=== PATIENT | female | born 1940 | race Caucasian/White ===

== ENCOUNTER → 2018-04-27 10:19 | Outpatient (CLI) | payer MEDICARE, SELFPAY ==
--- NOTE | 2018-04-27 | DI.MRI.S_ITS ---
PROCEDURE: MR CERVICAL SPINE WO CON INDICATIONS: Spondylopathy TECHNIQUE: Noncontrast sagittal T1 spin echo and T2 fast spin echo, sagittal STIR, foraminal oblique sagittal T2 fast spin echo, and axial gradient echo or T2 fast spin echo through the cervical spine. COMPARISON: None. FINDINGS: Image quality: Excellent. Alignment and Curvature: There is trace anterolisthesis of C3 on C4, C6 on C7, C7 on T1, trace retrolisthesis of C4 on C5, C5 on C6. Bone Marrow: Marrow demonstrates normal overall signal. Spinal Cord: Visualized spinal cord has normal size and signal. No cerebellar tonsillar herniation. Paraspinous Soft Tissues: No paravertebral masses. Prevertebral soft tissues are normal in thickness. Discs: Moderate to severe desiccation is present throughout the cervical spine most notable at C4-5 and C5-6. C2-C3: No disc bulge, spinal stenosis or foraminal narrowing. C3-C4: Mild disc bulge with minimal canal narrowing. There is severe right and moderate left foraminal narrowing with uncovertebral hypertrophy. C4-C5: Mild disc bulge with moderate spinal stenosis. There is moderate to severe bilateral foraminal narrowing with uncovertebral hypertrophy. C5-C6: Mild disc bulge with mild spinal stenosis. Moderate to severe bilateral, left greater than right foraminal narrowing with uncovertebral hypertrophy. C6-C7: Mild disc bulge with mild spinal stenosis. Severe bilateral foraminal narrowing, left greater than right with uncal vertebral hypertrophy. C7-T1: No disc bulge, spinal stenosis or foraminal narrowing. IMPRESSION: 1. Significant multilevel disc bulges and spinal stenosis, with the lateral prominent at C4-5 secondary retrolisthesis and disc bulge. 2. Moderate to severe multilevel foraminal narrowing predominantly secondary to uncovertebral arthropathy. Dictated by: Roxana Ramirez M.D. on 04/27/2018 at 15:51 Approved by: Roxana Ramirez M.D. on 04/27/2018 at 15:57
== END ==
PROVIDERS: PCP Family Medicine; Visit Provider Family Medicine
DX: M48.8X2 Other specified spondylopathies, cervical region (principal); M50.20 Other cervical disc displacement, unspecified cervical region; M48.02 Spinal stenosis, cervical region
CPT/HCPCS: 72141

== ENCOUNTER → 2018-10-01 10:52 | Outpatient (CLI) | payer MEDICARE, SELFPAY ==
--- NOTE | 2018-10-01 | DI.MG.S_ITS ---
BILATERAL DIGITAL SCREENING MAMMOGRAM 3D/2D WITH CAD: 10/01/2018 CLINICAL: Routine screening. Comparison is made to exams dated: 12/18/2016 mammogram, 08/30/2015 mammogram, and 07/26/2014 mammogram - [facility]. The tissue of both breasts is heterogeneously dense. This may lower the sensitivity of mammography. Current study was also evaluated with a Computer Aided Detection (CAD) system. No significant masses, calcifications, or other findings are seen in either breast. There has been no significant interval change. IMPRESSION: NEGATIVE There is no mammographic evidence of malignancy. A 1 year screening mammogram is recommended. This exam was interpreted at Station ID: [id number]. NOTE: For mammograms, a report in lay terms will be sent to the patient. Approximately 15% of breast malignancies will not be visualized mammographically. In the management of a palpable breast mass, a negative mammogram must not discourage biopsy of a clinically suspicious lesion. Electronically Signed By: Bhavesh vuong/zoey:10/01/2018 17:14:52 letter sent: Normal Exam ACR BI-RADS Category 1: Negative [id number]
== END ==
PROVIDERS: PCP Family Medicine; Visit Provider Family Medicine
DX: Z12.31 Encounter for screening mammogram for malignant neoplasm of breast (principal)
CPT/HCPCS: 77063; 77067

== ENCOUNTER → 2018-10-23 10:53 | Outpatient (CLI) | payer MEDICARE, SELFPAY ==
--- NOTE | 2018-10-23 | DI.MRI.S_ITS ---
PROCEDURE: MR STROKE Pre- and post-contrast brain MRI, non-contrast brain MR angiogram, pre- and postcontrast neck MR angiogram INDICATIONS: ATAXIA TECHNIQUE: Brain: Noncontrast axial T1 spin echo, axial T2 fast spin echo, sagittal and axial FLAIR, coronal T2 fast spin echo, axial gradient echo, axial diffusion and ADC through the brain. After the administration of contrast, axial 3D VIBE of the cranial vasculature and brain. Brain MRA: Non-contrast 3-D time of flight MR angiogram, with multiple gvownhz-znqpdpzym-dvhgssbcqw (MIP) reformats performed. Neck MRA: Axial and sagittal TruFISP through the neck. Coronal dynamic MR angiogram during administration of contrast in the arterial and venous phases, with 3-dimenstional ulbuxaq-mopwxmbyt-boshcpnwui (MIP) reformats constructed from subtraction images. COMPARISON: None. FINDINGS: Image quality: Excellent. BRAIN: CSF spaces: Ventricles are normal in size and shape. Basal cisterns are patent. No extra-axial fluid collections. Brain: No intracranial bleeds or mass effects. Delaney-white matter interface is normal. Diffusion weighted images show no acute ischemic insults. Brainstem appears normal. Normal intravascular flow voids are present. No abnormal intracranial enhancement. Skull and face: Calvarial marrow signal is normal. Orbits appear normal. Sinuses: Sinuses and mastoids are clear. BRAIN MR ANGIOGRAM: Anterior circulation: Intracranial internal carotid arteries are normal in size and enhancement. The flow within the paired anterior cerebral arteries is normal and symmetric. The flow within the middle cerebral arteries is normal and symmetric. The anterior communicating artery variant is noted. No stenoses, occlusions, or aneurysms. Posterior circulation: The visualized portions of the vertebral arteries demonstrate normal caliber, and join to form a normal appearing basilar artery. Diminutive left posterior communicating artery is seen. The flow within the posterior cerebral arteries is normal and symmetric. No stenoses, occlusions, or aneurysms. NECK MR ANGIOGRAM: Carotids: Great vessels demonstrate a conventional anatomy as they arise from the aortic arch. The origins of the common carotid arteries appear patent. The calibers and courses of both common carotid arteries are normal. The bifurcation regions appear normal bilaterally. The internal carotid arteries demonstrate normal course and caliber. Posterior circulation: The origins of the vertebral arteries appear patent. More superior portions of both vertebral arteries demonstrate normal course and caliber, and join to form a normal appearing basilar artery. Miscellaneous: Subclavian arteries appear patent. Pre-contrast images through the neck show no soft tissue abnormalities. IMPRESSION: BRAIN MRI: No evidence of acute ischemia. No abnormal enhancement or discrete mass lesion seen Scattered small white matter signal changes, probably represent chronic microvascular ischemic disease, versus statistically less likely demyelination or other infectious/inflammatory/neurodegenerative etiology, technically nonspecific. Scattered foci of chronic blood products or calcification seen in the left occipital lobe, indeterminate etiology. BRAIN MR ANGIOGRAM: No focal stenosis or occlusion NECK MR ANGIOGRAM: Negative exam. No ICA stenosis. Dictated by: Raul Flannery M.D. on 10/23/2018 at 12:36 Approved by: Raul Flannery M.D. on 10/23/2018 at 13:03
== END ==
PROVIDERS: PCP Family Medicine; Visit Provider Family Medicine
DX: R27.0 Ataxia, unspecified (principal)
CPT/HCPCS: 70553; A9579

== ENCOUNTER 2020-08-03 18:49 | Observation (INO) | payer MEDICARE, SELFPAY ==
[2020-08-03] VITALS (9 sets, daily range): BP systolic 130–194; BP diastolic 75–138; PULSE 73–77; RESP 17–30; TEMP 36.6–36.9; O2SAT 95–99; BMI 21.6
--- NOTE | 2020-08-03 | DI.ECHO.S_ITS ---
[facility] +---------+ Hospital +---------+ : : [address] : : : : [id number] : : : : Phone: [phone] Echocardiogram Report + + :Name: HAILEY WALKER Study Date: 08/04/2020 Height: 65 in : :Hospital Exam Location: [facility] Weight: 130 lb : : Gender: Female BSA: 1.6 m2 : :: 1940 Age: 80 yrs BP: 139/104 mmHg: :Reason For Study: TIA rule out : :Ordering Physician: Hazel : :Hospitalist Performed By: Barbi Page : :Referring: JACINTO VILLELA : + + Interpretation Summary Normal sinus rhythm. Normal LV size, wall thickness, wall motion and LV systolic function. EF is 60-65%. Severe LA enlargement; otherwise normal chamber sizes. Aortic sclerosis without stenosis. No prior study available for comparison. No evidence of PFO based on color flow Doppler. No source of embolism identified. Procedure: A two-dimensional transthoracic echocardiogram with color flow and Doppler was performed. The study quality was technically adequate. There is no prior echocardiogram noted for this patient. The patient was in normal sinus rhythm during the exam. The patient had occasional PVCs during the exam. Left Ventricle: The left ventricle is normal in size, wall thickness, and systolic function without any focal wall motion abnormalities. The ejection fraction is estimated to be 60-65%. Right Ventricle: The right ventricle is normal in size and function. Atria: The left atrium is severely dilated. Right atrial size is normal. There is no Doppler evidence for an interatrial shunt. Mitral Valve: The mitral valve is normal in structure and function. There is trace mitral regurgitation. Aortic Valve: The aortic valve is trileaflet. The aortic valve opens well. No aortic regurgitation is present. Tricuspid Valve: The tricuspid valve is normal in structure and function. There is trace tricuspid regurgitation. The right ventricular systolic pressure is estimated to be at least 28 mmHg based on an estimated right atrial pressure of 3 mm Hg. Pulmonic Valve: The pulmonic valve is not well visualized. Great Vessels: The aortic root is normal size. The dimensions of the ascending aorta are normal. The pulmonary artery is not well visualized, but is probably normal size. The IVC is of normal diameter and collapses greater than 50% with a sniff. This suggests a low right atrial pressure of 3 mm Hg. Pericardium/ Pleura There is no pericardial effusion. There is no pleural effusion. MMode/2D Measurements & Calculations LVIDd: 4.0 cm LVOT diam: 1.8 cm LVIDs: 2.8 cm Ao root diam: 2.8 cm FS: 32.0 % asc Aorta Diam: 2.4 cm EPSS: 0.55 cm IVSd: 0.50 cm LVPWd: 0.73 cm LV fitzgerald. diameter/BSA (cm/m^2): 2.5 LV sys. diameter/BSA (cm/m^2): 1.7 LA A2 area: 24.1 cm2 RA long axis: 4.3 cm LA A4 area: 23.2 cm2 RA area: 13.0 cm2 LA length (vol): 5.2 cm RA vol: 33.5 ml LA vol: 90.7 ml RA : 20.3 ml/m2 LA vol index: 55.0 ml/m2 IVC diam: 1.9 cm RVD1 (basal): 3.9 cm TAPSE: 2.2 cm Doppler Measurements & Calculations Ao V2 max: 138.8 cm/sec LVOT Max Ngaa: 92.2 cm/sec Ao V2 mean: 94.4 cm/sec LV V1 max P.4 mmHg Ao max P.7 mmHg LV V1 VTI: 20.9 cm Ao mean P.0 mmHg VICENTA(I,D): 1.9 cm2 Ao V2 VTI: 29.9 cm VICENTA(V,D): 1.8 cm2 sev ratio: 0.70 VICENTA indexed to BSA (cm^2/m^2): 1.1 MV E max naga: 88.0 cm/sec TR max naga: 248.6 cm/sec MV A max naga: 94.2 cm/sec TR max P.7 mmHg MV E/A: 0.93 PA V2 max: 70.8 cm/sec Med Peak E' Naga: 8.0 cm/sec PA V2 mean: 47.8 cm/sec E/E' med: 11.0 PA mean P.0 mmHg Lat Peak E' Naga: 8.9 cm/sec PA Accel Time: 0.12 sec E/E' lat: 9.8 E/e' average: 10.4 MV P1/2t: 88.3 msec MV /2t max naga: 88.7 cm/sec SV(LVOT): 56.2 ml MVA(2t): 2.5 cm2 Electronically signed by: Trisha Adams M.D. on Reading Physician:08/04/2020 06:33 PM
--- NOTE | 2020-08-03 19:03 | DI.RAD.S_ITS ---
PROCEDURE: XR CHEST 1V INDICATIONS: Possible stroke TECHNIQUE: One view of the chest was acquired. COMPARISON: None. FINDINGS: Surgical changes and devices: None. Lungs and pleura: Lungs are clear. No pleural effusions or pneumothorax. Mediastinum: Mediastinal contours appear normal. Heart size is normal. Bones and chest wall: No suspicious bony lesions. Overlying soft tissues appear unremarkable. IMPRESSION: No acute cardiopulmonary disease process. Dictated by: Emely De La Rosa MD, PhD on 08/03/2020 at 19:35 Approved by: Emely De La Rosa MD, PhD on 08/03/2020 at 19:35
--- NOTE | 2020-08-03 19:03 | DI.CT.S_ITS ---
PROCEDURE: CT STROKE INDICATIONS: stroke symptoms TECHNIQUE: Noncontrast 4.5 mm thick angled axial sections acquired from the foramen magnum to the vertex, with coronal reformats. For radiation dose reduction, the following was used: automated exposure control, adjustment of mA and/or kV according to patient size. COMPARISON: [facility], , MR STROKE, 10/23/2018, 11:03. FINDINGS: Image quality: Excellent. CSF spaces: Basal cisterns are patent. No extra-axial fluid collections. The ventricles are symmetric in size and shape. Brain: No intracranial bleeds or masses. Likely old infarctions are noted in bilateral occipital region and bilateral basal ganglia. There is cerebral volume loss for age, with resultant ventricular and sulcal prominence. There are periventricular and deep white matter chronic small vessel ischemic changes. There is intracranial internal carotid artery atherosclerosis. Skull and face: Calvarium and visualized facial bones appear intact, without suspicious lesions. Sinuses: Visualized sinuses and mastoids are clear. IMPRESSION: 1. No CT evidence of acute intracranial pathology. 2. Extensive white matter chronic small vessel ischemic changes. Likely old lacunar infarct seen in bilateral occipital lobes and bilateral basal ganglia. Findings were discussed with Dr. Dasilva at 7:21 p.m. PST On 08/03/2020. This study fulfills neurological imaging criteria for inclusion or exclusion of acute stroke therapies based on available published neurological guidelines. Dictated by: Parish Henderson M.D. on 08/03/2020 at 18:16 Approved by: Parish Henderson M.D. on 08/03/2020 at 18:22
--- NOTE | 2020-08-03 19:20 | ED.NEUROSD ---
HPI - Neuro Symptoms/Deficit General Chief Complaint: Neuro Symptoms/Deficit Stated Complaint: thinks she had a small stroke, Sent by Dr. Teague Time Seen by Provider: 08/03/20 19:20 Source: patient Mode of arrival: Ambulatory Limitations: no limitations History of Present Illness HPI Narrative: 80-year-old female nonsmoker presents with her at the request of her PCP for evaluation of struggling with written and typed communication for two weeks. She denies any other focal neurologic findings such as blurred vision, extremity weakness, trouble walking or other. She's had no injury, falls, chest pain, SOB, or other. She called her PCP and described her symptoms which are largely difficulty spelling words and mixing up letters. This also happens when typing. It has been persisting since it's onset 2 weeks ago. She was sent here by PCP for stroke evaluation. She is not activated as code stroke as she follow On Anticoagulants: No Related Data Home Medications Medication Instructions Recorded Confirmed Propranolol HCl 20 mg PO BID #0 08/21/12 08/03/20 estradiol 0.5 mg PO QDAY #0 08/21/12 08/03/20 latanoprost 1 drp OPHTHALMIC (EYE) BEDTIME 08/03/20 08/03/20 levothyroxine 50 mcg PO DAILY 08/03/20 08/03/20 netarsudil [Rhopressa] 1 drp OPHTHALMIC (EYE) BEDTIME 08/03/20 08/03/20 Allergies Allergy/AdvReac Type Severity Reaction Status Date / Time iodine [IODINE] Allergy Severe Anaphylaxis Verified 08/03/20 19:12 shellfish derived Allergy Severe Anaphylaxis Verified 08/03/20 19:12 [SHELLFISH DERIVED] Penicillins [PENICILLINS] Allergy Mild Verified 08/03/20 19:12 egg [EGG] Allergy Unknown Verified 08/03/20 19:12 lactase [From DAIRY AID] Allergy Unknown Verified 08/03/20 19:12 Review of Systems Constitutional Constitutional: Denies chills, Denies fatigue, Denies fever(s), Denies frequent falls, Denies lethargy and Denies weakness Eyes Eyes: Denies change in vision, Denies eye discharge, Denies irritation and Denies loss of vision ENT Ears, Nose, Mouth, and Throat: Denies change in voice, Denies dizziness, Denies neck pain, Denies sore throat and Denies throat swelling Cardiovascular Cardiovascular: Denies chest pain, Denies irregular heart rhythm, Denies lightheadedness, Denies palpitations, Denies dyspnea, Denies dyspnea on exertion and Denies orthopnea Respiratory Respiratory: Denies cough, Denies dyspnea, Denies dyspnea on exertion and Denies wheezing Gastrointestinal Gastrointestinal: Denies abdominal pain, Denies change in bowel habits, Denies diarrhea, Denies nausea and Denies vomiting Musculoskeletal Musculoskeletal: Denies neck pain and Denies numbness Integumentary/Breasts Skin/Breast: Denies pruritus, Denies erythema, Denies rash and Denies wounds Neurologic Neurologic: Denies behavioral changes, Denies confusion, Denies dizziness, Denies frequent falls, Denies loss of vision, Denies numbness and Denies weakness Comments: communication trouble Psychiatric Psychiatric: Denies anxiety, Denies behavioral changes, Denies confusion, Denies depression, Denies homicidal ideation and Denies suicidal ideation Endocrine Endocrine: Denies fatigue, Denies flushing and Denies palpitations Hematologic/Lymphatic Hematologic/Lymphatic: Denies easy bruising Allergic/Immunologic Allergic/Immunologic: Denies urticaria, Denies throat swelling and Denies wheezing Patient History Medical History (Updated 08/04/20 @ 00:36 by JASMIN Romero) Chronic migraine (Chronic) Glaucoma (Chronic) Hormone replacement therapy (Chronic) Surgical History (Updated 03/03/18 @ 05:33 by Conversion Provider) Status post cholecystectomy Status post hysterectomy Social History household members: spouse Smoking Status: Never smoker alcohol intake: former Smoking Status: Never smoker alcohol intake frequency: other Substance Use Type: does not use Exam Narrative Exam Narrative: GENERAL: [80] year old patient appears stated age. Well-nourished, well-developed patient, in mild distress. HEAD: Atraumatic. Normocephalic. EYES: Pupils equal round and reactive. Extraocular motions intact. No scleral icterus. No injection or drainage. ENT: Nose without bleeding, purulent drainage. Throat without erythema, tonsillar hypertrophy or exudate. Airway patent. NECK: Trachea midline. Non tender CARDIOVASCULAR: Regular rate and rhythm without murmurs, gallops, or rubs. RESPIRATORY: Clear to auscultation. Breath sounds equal bilaterally. No wheezes, rales, or rhonchi. GASTROINTESTINAL: Abdomen soft, non-tender, nondistended. EXTREMITIES: No edema or joint tenderness. BACK: Nontender without deformity or crepitance. No flank tenderness. NEURO: AOx3. SKIN: No rash or erythema of visible areas Initial Vital Signs Initial Vital Signs: Vital Signs Temperature 97.8 F 08/03/20 18:58 Pulse Rate 75 08/03/20 18:58 Respiratory Rate 17 08/03/20 18:58 Blood Pressure 194/85 H 08/03/20 18:58 Pulse Oximetry 95 08/03/20 18:58 Scores NIH Stroke Scale Level of Conciousness: Alert, keenly responsive Ask month/age: Answers both questions correctly. Open/close eyes, close hand: Performs both tasks correctly Best gaze horizontal: Normal Visual gaytan: No visual loss Facial palsy: Normal symetrical movement Left arm drift: No drift for full 10 sec Right arm drift: No drift for full 10 sec Left leg drift: No drift for full 5 sec Right leg drift: No drift for full 5 sec Limb ataxia: Absent Sensory on face/arms/legs: Normal, no sensory loss Best language: No aphasia, normal Dysarthria: Normal Extinction or inattention: No abnormality Total NIH Stroke scale score: 0 Course Orders Ordered: ED Orders 08/03/20 19:03 CT Stroke Stat XR chest 1V Stat EKG-12 Lead Stat 08/03/20 19:35 COVID19 -ED/INPAT/OR/L&D Stat Complete Blood Count AUTO DIFF Stat Comprehensive Metabolic Panel Stat Partial Thromboplastin Time Stat Prothrombin Time INR Stat Troponin & CK Cardiac Panel Stat 08/04/20 02:10 Urine Drug Screen, Rapid Stat Acetaminophen (Tylenol) 650 mg PO Q6HR PRN PRN Reason: Fever/Mild Pain (1-3) Apixaban (Eliquis) 5 mg PO BID [facility] Aspirin (Aspirin Ec) 81 mg PO DAILY [facility] Atorvastatin Calcium (Lipitor) 40 mg PO BEDTIME [facility] Enoxaparin Sodium (Lovenox) 40 mg SUBCUT DAILY [facility] Influenza Virus Vaccine (Flu Vaccine) 0.5 ml IM .ONCE ONE Stop: 08/04/20 09:01 Latanoprost (Xalatan 0.005% Ophth) 1 drops EYE-BOTH BEDTIME [facility] Levothyroxine Sodium (Synthroid) 50 mcg PO QACBREAK [facility] Metoprolol Succinate (Toprol Xl) 25 mg PO DAILY [facility] Naloxone HCl (Narcan) 0.2 mg IV Q2MIN PRN PRN Reason: Opiate Reversal Non-Formulary Medication (Netarsudil [Rhopressa]) 1 drop OPHTHALMIC (EYE) BEDTIME [facility] Ondansetron HCl (Zofran) 4 mg IV Q8HR PRN PRN Reason: Nausea And Vomiting Propranolol HCl (Inderal) 20 mg PO BID [facility] Last Admin: 08/04/20 00:07 Dose: 20 mg Documented by: AHARSTA Sodium Chloride (Normal Saline 0.9% Flush) 10 ml IV PRN PRN PRN Reason: Flush Sodium Chloride (Normal Saline 0.9% Flush) 10 ml IV BID [facility] Discontinued Medications Aspirin (Aspirin Chew) 324 mg PO NOW ONE Stop: 08/03/20 19:34 Last Admin: 08/03/20 19:48 Dose: 324 mg Documented by: JERSON Latanoprost (Xalatan 0.005% Ophth) drops EYE-BOTH BEDTIME [facility] Vital Signs Vital signs: Vital Signs - 8 hr 08/03/20 18:58 08/03/20 19:19 08/03/20 19:20 Temperature 97.8 F Pulse Rate 75 76 77 Respiratory Rate 17 Blood Pressure 194/85 H 172/138 H Pulse Oximetry 95 98 98 08/03/20 19:30 08/03/20 19:52 08/03/20 20:00 Temperature Pulse Rate 74 75 75 Respiratory Rate 20 30 H 26 H Blood Pressure 186/103 H Pulse Oximetry 97 99 08/03/20 20:30 Temperature Pulse Rate 76 Respiratory Rate 22 Blood Pressure Pulse Oximetry 95 MDM - Neuro Symptoms/Deficit Lab Data Result diagrams: 08/03/20 19:35 08/03/20 19:35 Labs: Lab Results 08/03/20 08/03/20 08/03/20 Range/Units 19:35 19:35 19:35 WBC 6.7 (4.5-11.0) X10^3/uL RBC 4.60 (4.0-5.2) X10^6/uL Hgb 13.2 (12.0-16.0) g/dL Hct 39.6 (36-46) % MCV 86.3 (80-100) fL MCH 28.6 (26-34) PG MCHC 33.2 (30-36) % RDW 13.3 (11.6-14.8) % Plt Count 237 (150-400) X10^3/uL Neut % (Auto) 62.1 (50-75) % Lymph % (Auto) 24.6 L (25-40) % [place] % (Auto) 10.4 (3-14) % Eos % (Auto) 1.4 L (2-4) % Baso % (Auto) 1.5 (0-2) % Neut # (Auto) 4100 (4257-2433) /uL Lymph # (Auto) 1600 (6625-2557) /uL [place] # (Auto) 700 (0-900) /uL Eos # (Auto) 100 (0-450) /uL Baso # (Auto) 100 (0-100) /uL PT 11.0 (10.1-12.7) SECONDS INR 1.0 (0.9-1.3) APTT 31 (26.4-36.2) SECONDS Sodium 140 (137-145) mmol/L Potassium 4.1 (3.4-5.1) mmol/L Chloride 105 (98-107) mmol/L Carbon Dioxide 29 (22-32) mmol/L BUN 15 (7-17) mg/dL Creatinine 0.92 (0.52-1.04) mg/dL Estimated GFR 58.6 L (>60) mL/min BUN/Creatinine Ratio 16.3 (6-22) Glucose 102 (80-110) mg/dL Calcium 9.5 (8.4-10.2) mg/dL Total Bilirubin 0.5 (0.2-1.3) mg/dL AST 26 (14-36) IU/L ALT 17 (<35) IU/L Alkaline Phosphatase 109 (38-126) U/L Total Creatine Kinase 95 (30-135) U/L CK-MB (CK-2) TNP CK-MB (CK-2) Rel Index TNP Troponin I < 0.012 (0.01-0.034) ng/mL Total Protein 7.6 (6.3-8.2) g/dL Albumin 4.2 (3.5-5.0) g/dL Globulin 3.4 (1.7-4.1) g/dL Albumin/Globulin Ratio 1.2 (1.0-2.8) COVID-19 PCR (Negative) 08/03/20 Range/Units 19:35 WBC (4.5-11.0) X10^3/uL RBC (4.0-5.2) X10^6/uL Hgb (12.0-16.0) g/dL Hct (36-46) % MCV (80-100) fL MCH (26-34) PG MCHC (30-36) % RDW (11.6-14.8) % Plt Count (150-400) X10^3/uL Neut % (Auto) (50-75) % Lymph % (Auto) (25-40) % [place] % (Auto) (3-14) % Eos % (Auto) (2-4) % Baso % (Auto) (0-2) % Neut # (Auto) (3507-6215) /uL Lymph # (Auto) (9518-8475) /uL [place] # (Auto) (0-900) /uL Eos # (Auto) (0-450) /uL Baso # (Auto) (0-100) /uL PT (10.1-12.7) SECONDS INR (0.9-1.3) APTT (26.4-36.2) SECONDS Sodium (137-145) mmol/L Potassium (3.4-5.1) mmol/L Chloride (98-107) mmol/L Carbon Dioxide (22-32) mmol/L BUN (7-17) mg/dL Creatinine (0.52-1.04) mg/dL Estimated GFR (>60) mL/min BUN/Creatinine Ratio (6-22) Glucose (80-110) mg/dL Calcium (8.4-10.2) mg/dL Total Bilirubin (0.2-1.3) mg/dL AST (14-36) IU/L ALT (<35) IU/L Alkaline Phosphatase (38-126) U/L Total Creatine Kinase (30-135) U/L CK-MB (CK-2) CK-MB (CK-2) Rel Index Troponin I (0.01-0.034) ng/mL Total Protein (6.3-8.2) g/dL Albumin (3.5-5.0) g/dL Globulin (1.7-4.1) g/dL Albumin/Globulin Ratio (1.0-2.8) COVID-19 PCR Negative (Negative) MDM Narrative Medical decision making narrative: patient requires hospitalization for completion of stroke evaluation. Discharge Plan Departure Patient Disposition: Admitted as Observation Clinical Impression: Brain TIA Discharge Date/Time: 08/03/20 21:50 Referrals: Rizwan Teague MD [Primary Care Provider] - Admit Date/Time: 08/03/20 21:21 Admit Provider: Yazmin Flannery
[2020-08-03 19:45] LABS: Add Manual Diff / Slide Review NO; Basophils Absolute Auto 100 /uL (0-100); Basophils Percent Auto 1.5 % (0-2); Eosinophils Absolute Auto 100 /uL (0-450); Eosinophils Percent Auto 1.4 % (2-4); Hematocrit 39.6 % (36-46); Hemoglobin 13.2 g/dL (12.0-16.0); Lymphocytes Absolute Auto 1600 /uL (1100-4500); Lymphocytes Percent Auto 24.6 % (25-40); Mean Corpuscular HGB Conc 33.2 % (30-36); Mean Corpuscular Hemoglobin 28.6 PG (26-34); Mean Corpuscular Volume 86.3 fL (80-100); Monocytes Absolute Auto 700 /uL (0-900); Monocytes Percent Auto 10.4 % (3-14); Neutrophils Absolute Auto 4100 /uL (1500-7000); Neutrophils Percent Auto 62.1 % (50-75); Platelet Count 237 X10^3/uL (150-400); Red Cell Distribution Width 13.3 % (11.6-14.8); White Blood Cell Count 6.7 X10^3/uL (4.5-11.0)
[2020-08-03] MEDS: ASPIRIN 81 MG CHEW TAB 324 MG PO (19:48)
[2020-08-03 19:55] LABS: PTT Partial Thromboplastin Tim 31 SECONDS (26.4-36.2)
[2020-08-03 19:58] LABS: Alanine Aminotransferase 17 IU/L (<35); Albumin 4.2 g/dL (3.5-5.0); Albumin Globulin Ratio 1.2 (1.0-2.8); Alkaline Phosphatase 109 U/L (38-126); Aspartate Aminotransferase 26 IU/L (14-36); BUN Creatinine Ratio 16.3 (6-22); Bilirubin Total 0.5 mg/dL (0.2-1.3); Blood Urea Nitrogen 15 mg/dL (7-17); Calcium 9.5 mg/dL (8.4-10.2); Carbon Dioxide 29 mmol/L (22-32); Chloride 105 mmol/L (98-107); Creatine Kinase 95 U/L (30-135); Estimated Glomerular Filt Rate 58.6 mL/min (>60); Globulin 3.4 g/dL (1.7-4.1); Glucose 102 mg/dL (80-110); HEMOLYSIS < 15 (0-50); Potassium 4.1 mmol/L (3.4-5.1); Sodium 140 mmol/L (137-145); Total Protein 7.6 g/dL (6.3-8.2)
[2020-08-03 20:03] LABS: COVID19 -Nasal RAPID Negative (Negative)
[2020-08-03 20:09] LABS: Troponin I < 0.012 ng/mL (0.01-0.034)
--- NOTE | 2020-08-03 23:23 | PC.NURSE ---
Pt to room 207 from E.R. awake, alert, conversant. Ambulates into bathroom independently and then around room without difficulty. Pt denies pain. No difficulty with speech or comprehension. Moves all extremities independently. JASMIN Flannery in to see patient. Tele placed on pt and CARTOGRAPHIC TECHNICIAN, Phyllis informed. Pt's home meds reconciled and bottles of home meds were given to NOC RNRivka, to manage and secure. Pt has purse and other belongings in room and declines to secure purse in safe.
[2020-08-03] MEDS: NETARSUDIL 1 EACH EYE-BOTH (23:45)
[2020-08-04] MEDS: PROPRANOLOL 10 MG TABLET 20 MG PO ×2 (00:07→08:41)
--- NOTE | 2020-08-04 00:08 | PM.HP.1 ---
History of Present Illness History of Present Illness Date Patient Seen: 08/03/20 Time Patient Seen: 23:00 Chief complaint: thinks she had a small stroke, Sent by Dr. Teague Narrative: Elaine Don is a delightful 80 y.o. female from [facility] came in with a 2 week history of being unable to write or type correctly. She states she can verbally spell out words, but when she writes or types out a word it contains the correct letters but are garbled up. 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 She has a history of frequent migraines, denies vision changes, chest pain, shortness of breath, dysurea, diarrhea or constipation. She denies weakness, any sensory deficits, problems swallowing, speaking or ambulation. CT scan of her head today reported Extensive white matter chronic small vessel ischemic changes. Likely old lacunar infarct seen in bilateral occipital lobes and bilateral basal ganglia.Blood pressure is 149/75, heart rate 73, respiratory rate 18, oxygen saturation 95% on room air, she is 58.9 kg with a BMI of 21.6. CBC and chemistries are largely within normal limits, troponin is negative, and COVID-19 is negative. Patient History Medical History (Updated 08/04/20 @ 00:36 by JASMIN Romero) Chronic migraine (Chronic) Glaucoma (Chronic) Hormone replacement therapy (Chronic) Surgical History (Updated 03/03/18 @ 05:33 by Conversion Provider) Status post cholecystectomy Status post hysterectomy Family & Social History Social History: household members spouse Prior Living Arrangements House Safety & Behavioral: Feels Safe in Current Yes Environment Been Physically Hurt or No Threatened By a Person Suicidal Ideation Description None Suicide Plan Description No Plan Tobacco & Substance use: Smoking Status Never smoker alcohol intake former alcohol intake frequency other Substance Use Type does not use Meds Home Medications and Allergies Home Medications Medication Instructions Recorded Confirmed Type Propranolol HCl 20 mg PO BID #0 08/21/12 08/03/20 History estradiol 0.5 mg PO QDAY #0 08/21/12 08/03/20 History latanoprost 1 drp OPHTHALMIC (EYE) BEDTIME 08/03/20 08/03/20 History levothyroxine 50 mcg PO DAILY 08/03/20 08/03/20 History netarsudil [Rhopressa] 1 drp OPHTHALMIC (EYE) BEDTIME 08/03/20 08/03/20 History Allergies Allergy/AdvReac Type Severity Reaction Status Date / Time iodine [IODINE] Allergy Severe Anaphylaxis Verified 08/03/20 19:12 shellfish derived Allergy Severe Anaphylaxis Verified 08/03/20 19:12 [SHELLFISH DERIVED] Penicillins [PENICILLINS] Allergy Mild Verified 08/03/20 19:12 egg [EGG] Allergy Unknown Verified 08/03/20 19:12 lactase [From DAIRY AID] Allergy Unknown Verified 08/03/20 19:12 Review of Systems Review of Systems ROS: Yes All systems reviewed with the patient and are negative except as otherwise documented Exam Vital Signs (past 8 hours): - 08/03/20 18:58 08/03/20 19:19 08/03/20 19:20 Temperature 97.8 F Pulse Rate 75 76 77 Respiratory Rate 17 Blood Pressure 194/85 H 172/138 H Pulse Oximetry 95 98 98 08/03/20 19:30 08/03/20 19:52 08/03/20 20:00 Temperature Pulse Rate 74 75 75 Respiratory Rate 20 30 H 26 H Blood Pressure 186/103 H Pulse Oximetry 97 99 08/03/20 20:30 08/03/20 21:35 08/03/20 23:15 Temperature 98.4 F 98.3 F Pulse Rate 76 76 73 Respiratory Rate 22 17 18 Blood Pressure 130/104 H 149/75 H Pulse Oximetry 95 97 95 Oxygen Delivery Method Room Air Oxygen Flow Rate 0 Narrative Exam Narrative: Gen: Alert, oriented, well-developed 80 y.o. female, NAD HEENT: normocephalic, atraumatic, conjunctiva clear, sclera non-icteric, oral mucosa pink and moist Neck: supple, full ROM, no JVD, trachea is midline Resp: Lungs CTA, non-labored breathing CV: RRR, no murmur or rubs Abd: soft, non-tender, normoactive BTs Skin: no lesions or rashes, dry and intact Neuro: NIH score of 0, alert and oriented X 4 w/no focal deficits. Speech clear and coherent. Extremities: moves all 4 extremities, is ambulatory, negative Sophia?s sign Psyche: normal mood and affect. Objective Labs Result Diagrams: 08/03/20 19:35 08/03/20 19:35 Labs: Laboratory Results - last 24 hr 10/01/20 10/01/20 10/01/20 19:35 19:35 19:35 WBC 6.7 RBC 4.60 Hgb 13.2 Hct 39.6 MCV 86.3 MCH 28.6 MCHC 33.2 RDW 13.3 Plt Count 237 Neut % (Auto) 62.1 Lymph % (Auto) 24.6 L Weber % (Auto) 10.4 Eos % (Auto) 1.4 L Baso % (Auto) 1.5 Neut # (Auto) 4100 Lymph # (Auto) 1600 Weber # (Auto) 700 Eos # (Auto) 100 Baso # (Auto) 100 PT 11.0 INR 1.0 APTT 31 Sodium 140 Potassium 4.1 Chloride 105 Carbon Dioxide 29 BUN 15 Creatinine 0.92 Estimated GFR 58.6 L BUN/Creatinine Ratio 16.3 Glucose 102 Calcium 9.5 Total Bilirubin 0.5 AST 26 ALT 17 Alkaline Phosphatase 109 Total Creatine Kinase 95 CK-MB (CK-2) TNP CK-MB (CK-2) Rel Index TNP Troponin I < 0.012 Total Protein 7.6 Albumin 4.2 Globulin 3.4 Albumin/Globulin Ratio 1.2 COVID-19 PCR 08/03/20 19:35 WBC RBC Hgb Hct MCV MCH MCHC RDW Plt Count Neut % (Auto) Lymph % (Auto) Weber % (Auto) Eos % (Auto) Baso % (Auto) Neut # (Auto) Lymph # (Auto) Weber # (Auto) Eos # (Auto) Baso # (Auto) PT INR APTT Sodium Potassium Chloride Carbon Dioxide BUN Creatinine Estimated GFR BUN/Creatinine Ratio Glucose Calcium Total Bilirubin AST ALT Alkaline Phosphatase Total Creatine Kinase CK-MB (CK-2) CK-MB (CK-2) Rel Index Troponin I Total Protein Albumin Globulin Albumin/Globulin Ratio COVID-19 PCR Negative Assessment & Plan Assessment & Plan narrative: Dysgraphia with suspected TIA versus stroke, acute, present on admission -initiate apixaban 5 mg p.o. twice daily and aspirin 81 mg p.o. daily -MR stroke scheduled for the morning -Complete Echo -PT/OT/ST evaluation -May need to refer to neurology for advanced cognitive evaluations to assess for early sign of frontotemporal dementia -Have discontinued HRT as this increases her stroke risk Hypertension, acute with an admission bp of 194/85, present on admission -Allow for permissive hypertension of 220/110 HR 60 to allow for brain perfusion Risk stratification -Fasting lipid panel pending -A1c pending VTE prophylaxis: Wells risk score: 0 Huber score 2-3 Low Enoxaparin 40 mg subQ daily Consults: none Patient is observation status as [] stay is not likely to exceed 2 midnights. FEN: IV saline lock, heart healthy diet, BMP and magnesium in the am. Dispo: probable discharge to home w/outpatient OT Code Status: DNR/DNI as discussed with patient COVID-19 COVID-19 status: Negative Result date/Date tested (Pos, Neg/Pending): 08/03/20 Scores Wells' Criteria for PE Clinical signs and symptoms of DVT: No PE is #1 Dx or equally likely: No Heart rate > 100: No Immobilization at least 3 days or surg in previous 4 weeks: No History of PE or DVT: No Hemoptysis: No Malignancy w/Treatment within 6 months or palliative: No Wells' PE Score total: 0 Quality VTE Deep Vein Thrombosis/Pulmonary Embolism Present on Admission: No
--- NOTE | 2020-08-04 00:51 | PC.NURSE ---
Seen and assessed at 0017. Is alert and oriented. Breath sounds CTA with RA sat of 95%. HRR with telemetry reading of SR w/1st degree AVB. BP elevated at 149/75 and did receive hs dose of Propranolol. Denies nausea. BT present and abdomen is soft. Denies dysuria, frequency or urgency with urination. Independent with mobility and is steady on feet; denies any weakness. Denies pain. NIH = 0. Fall risk score is low.
[2020-08-04 02:21] LABS: UR Morphine/Opiate cutoff 300 Negative (Negative); Ur Creatinine Normal (Normal); Ur Specific Gravity Normal (Normal); Urine Amphetamines Negative (Negative); Urine Barbiturates Negative (Negative); Urine Benzodiazepines Negative (Negative); Urine Cocaine Negative (Negative); Urine MDMA Negative (Negative); Urine Methadone Negative (Negative); Urine Methamphetamines Negative (Negative); Urine Oxycodone Negative (Negative); Urine Phencyclidine Negative (Negative); Urine Tetrahydrocannabinol Negative (Negative); Urine Tricyclic Antidepressant Negative (Negative); Urine pH Normal (Normal)
[2020-08-04 05:40] VITALS: BP 117/59; PULSE 66; RESP 18; TEMP 37.3; O2SAT 97
[2020-08-04] MEDS: LEVOTHYROXINE 50 MCG TABLET PO (05:54)
[2020-08-04 06:20] LABS: Add Manual Diff / Slide Review NO; Basophils Absolute Auto 100 /uL (0-100); Basophils Percent Auto 1.3 % (0-2); Eosinophils Absolute Auto 100 /uL (0-450); Eosinophils Percent Auto 1.1 % (2-4); Hematocrit 38.8 % (36-46); Hemoglobin 12.8 g/dL (12.0-16.0); Lymphocytes Absolute Auto 2100 /uL (1100-4500); Lymphocytes Percent Auto 27.7 % (25-40); Mean Corpuscular HGB Conc 32.9 % (30-36); Mean Corpuscular Hemoglobin 28.3 PG (26-34); Mean Corpuscular Volume 86.1 fL (80-100); Monocytes Absolute Auto 700 /uL (0-900); Monocytes Percent Auto 9.4 % (3-14); Neutrophils Absolute Auto 4500 /uL (1500-7000); Neutrophils Percent Auto 60.5 % (50-75); Platelet Count 221 X10^3/uL (150-400); Red Blood Cell Count 4.51 X10^6/uL (4.0-5.2); Red Cell Distribution Width 13.3 % (11.6-14.8); White Blood Cell Count 7.5 X10^3/uL (4.5-11.0)
[2020-08-04 06:26] LABS: Blood Urea Nitrogen 15 mg/dL (7-17); Calcium 9.4 mg/dL (8.4-10.2); Carbon Dioxide 29 mmol/L (22-32); Chloride 107 mmol/L (98-107); Cholesterol 186 mg/dL (140-199); Estimated Glomerular Filt Rate 57.2 mL/min (>60); Glucose 93 mg/dL (80-110); HDL Cholesterol 43 mg/dL (40-60); HEMOLYSIS < 15 (0-50); LDL Cholesterol Calculated 113 mg/dL (<100); Magnesium 2.2 mg/dL (1.6-2.3); Potassium 4.3 mmol/L (3.4-5.1); Sodium 138 mmol/L (137-145); Triglycerides 148 mg/dL (35-150)
[2020-08-04 06:37] LABS: Hemoglobin A1C% w Est Avg Glu 5.4 % (4.0-6.0)
[2020-08-04 06:56] LABS: Thyroid Stimulating Hormone 7.02 uIU/mL (0.47-4.68)
[2020-08-04 07:50] VITALS: BP 147/72; PULSE 74; RESP 18; TEMP 36.7; O2SAT 96
[2020-08-04 08:09] VITALS: BP 147/72; PULSE 71
[2020-08-04] MEDS: METOPROLOL ER 25 MG TABLET PO (08:09)
[2020-08-04] MEDS: ASPIRIN EC 81 MG TABLET PO (08:09)
[2020-08-04] MEDS: APIXABAN 5 MG TABLET PO (08:09)
[2020-08-04] MEDS: ENOXAPARIN 40 MG/0.4 ML SYRINGE SUBCUT (08:10)
[2020-08-04 10:14] LABS: Free T4, Direct Thyroxine 1.35 ng/dL (0.78-2.19)
--- NOTE | 2020-08-04 10:18 | DI.MRI.S_ITS ---
PROCEDURE: MR STROKE Pre- and post-contrast brain MRI, non-contrast brain MR angiogram, pre- and postcontrast neck MR angiogram INDICATIONS: Dysgraphia, previous hx of lacunar infarcts TECHNIQUE: Brain: Noncontrast axial T1 spin echo, axial T2 fast spin echo, sagittal and axial FLAIR, coronal T2 fast spin echo, axial gradient echo, axial diffusion and ADC through the brain. After the administration of contrast, axial 3D VIBE of the cranial vasculature and brain. Brain MRA: Non-contrast 3-D time of flight MR angiogram, with multiple ygkxcdz-ptlsxezun-oiltvhryjg (MIP) reformats performed. Neck MRA: Axial and sagittal TruFISP through the neck. Coronal dynamic MR angiogram during administration of contrast in the arterial and venous phases, with 3-dimenstional gjhpopy-bzsaiefdb-ojzmltdgmm (MIP) reformats constructed from subtraction images. COMPARISON: [facility], CT, CT STROKE, 08/03/2020, 19:04. [facility], MR, MR STROKE, 10/23/2018, 11:03. FINDINGS: Image quality: Excellent. BRAIN: CSF spaces: Ventricles are normal in size and shape. Basal cisterns are patent. No extra-axial fluid collections. Brain: There is a small focus of abnormal signal seen within the right aspect of the anterior corpus callosum, as on series 22, image 17, with potential increased enhancement, as on series 24, image 16. This is not definitely seen on the 2018 examination. There is faintly increased diffusion-weighted signal seen at this site, with likely decreased signal seen on the accompanying ADC map, yet this is not well seen. There is a mild amount of increased enhancement seen at this site, as on series 36, image 113. No intracranial bleeds or mass effects. Delaney-white matter interface is normal. Brain parenchymal volume loss is seen. A few remote small lacunar infarcts are again seen. Brainstem appears normal. Normal intravascular flow voids are present. No abnormal intracranial enhancement. Relatively prominent perivascular spaces are noted. Skull and face: Calvarial marrow signal is normal. Orbits appear normal. Note is made of bilateral lens replacements. Sinuses: Sinuses and mastoids are clear. BRAIN MR ANGIOGRAM: Anterior circulation: Intracranial internal carotid arteries are normal in size and enhancement. The flow within the paired anterior cerebral arteries is normal and symmetric. The flow within the middle cerebral arteries is normal and symmetric. The anterior communicating artery is seen. Incidental note is made of a fenestration between the anterior communicating artery and the right A2 segment, as on series 10, image 122. No stenoses, occlusions, or aneurysms. Posterior circulation: The visualized portions of the vertebral arteries demonstrate normal caliber, and join to form a normal appearing basilar artery. The flow within the posterior cerebral arteries is normal and symmetric. No stenoses, occlusions, or aneurysms. NECK MR ANGIOGRAM: Carotids: Great vessels demonstrate a conventional anatomy as they arise from the aortic arch. The origins of the common carotid arteries appear patent. The calibers and courses of both common carotid arteries are normal. The bifurcation regions appear normal bilaterally. The internal carotid arteries demonstrate normal course and caliber. Posterior circulation: The origins of the vertebral arteries appear patent. More superior portions of both vertebral arteries demonstrate normal course and caliber, and join to form a normal appearing basilar artery. Miscellaneous: Subclavian arteries appear patent. Pre-contrast images through the neck show no soft tissue abnormalities. IMPRESSION: BRAIN MRI: Likely small area of subacute infarction involving the right aspect of the anterior corpus callosum. However, differential diagnosis would include a focus of densely cellular neoplasm, given the enhancement. Please consider a short-term follow-up brain MRI (without and with contrast) in 4-6 weeks. Note is made of age-appropriate brain parenchymal volume loss and chronic small vessel ischemic changes. Remote lacunar infarcts are seen. BRAIN MR ANGIOGRAM: No significant intracranial arterial abnormality is seen. NECK MR ANGIOGRAM: Within the arteries of the neck, no hemodynamically significant stenosis can be seen. Dictated by: Calvin Hall M.D. on 08/04/2020 at 10:10 Approved by: Calvin Hall M.D. on 08/04/2020 at 10:20
--- NOTE | 2020-08-04 10:20 | OT.IP.EVAL ---
Past Medical History (Last Updated 08/04/20 @ 00:36 by JASMIN Romero) Chronic migraine (Chronic) Glaucoma (Chronic) Hormone replacement therapy (Chronic) Surgical History Status post cholecystectomy Status post hysterectomy Occupational Therapy Inpatient Evaluation/Re-Eval M1 PT/OT-IP Prior Functional Status Start: 08/04/20 09:58 Freq: NEEDED Status: Active Protocol: Document 08/04/20 12:07 CGR (Rec: 08/04/20 12:22 CGR [email or web address]) Medical Review Prior Functional Status Medical History Reviewed Yes Communication Pt is an effective verbal communicator. No noted slurring or word finding difficulty. Mobility and Gait Pt was IND in all mobility at baseline Activities of Daily Living and IADL's Pt was IND in all ADLs at baseline. Social History Household Members spouse Living Arrangements House Number of Floors (Floors) Two Floors Number of Stairs To Enter/Railing? 1 step to enter and a flight of 21 steps with L rail assending, then platform, then R rail. 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 Pt has no DME. M2 OT-IP Current Condition Start: 08/04/20 12:07 Freq: Status: Active Protocol: Document 08/04/20 12:07 CGR (Rec: 08/04/20 12:22 CGR [email or web address]) Occupational Therapy Current Condition Current Condition Evaluation Date 08/04/20 Treatment Diagnosis Dysgraphia, 2 week hx Diagnosis Onset Date 08/03/20 M3 OT- IP Subjective and Pain Start: 08/04/20 12:07 Freq: Status: Active Protocol: Document 08/04/20 12:07 CGR (Rec: 08/04/20 12:22 CGR [email or web address]) OT- Subjective Occupational Therapy Visit Type Type Initial Evaluation Visit Start Time 09:50 Visit Stop Time 10:20 Total Visit Minutes 30 OT Pain Assessment Pain When Pain Assessed At Rest Pain Present Pain Present Denied Pain M4 OT- IP ADL's Start: 08/04/20 12:07 Freq: Status: Active Protocol: Document 08/04/20 12:07 CGR (Rec: 08/04/20 12:22 CGR [email or web address]) OT [id number] Comments OT Self-Feeding Comments Not meal time but per nursing, no difficulty with getting fork to mouth or swallowing OT ADL-Grooming General Evaluation Grooming Ability Independent Areas Needing Assistance Face Washing Comments OT Grooming Comments standing at sink OT ADL-Oral Care General Eval Oral Care Ability Independent Areas of Assistance Brushing Teeth Comments Oral Care Comments simulated standing at sink OT ADL-Dressing General Eval Lower Body Dressing Ability Independent Comments OT Dressing Comments Slide on shoes with use of hands to get over heals. Performed without difficulty. OT ADL-Toileting General Evaluation Toileting Ability Independent Comments OT Toileting Comments urinated seated on toilet OT ADL-Bathing Comments OT Bathing Comments not performed M5 OT- IP IADL's Start: 08/04/20 12:07 Freq: Status: Active Protocol: Document 08/04/20 12:07 CGR (Rec: 08/04/20 12:22 CGR [email or web address]) OT-Instrumental Activities of Daily Living Deficits IADL Deficits Identified No Deficits Home Safety Awareness Awareness of Need for Assistance at Home Good Awareness Ability to Problem Solve Emergency Able to Problem Solve Situations Medication Management Medication Management No Deficits Identified Money Management Money Management No Deficits Identified Meal Preparation Meal Preparation No Deficits Identified 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 No Deficits Identified Driving Driving Comments 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 OT- IP Functional Cognition Start: 08/04/20 12:07 Freq: Status: Active Protocol: Document 08/04/20 12:07 CGR (Rec: 08/04/20 12:22 CGR [email or web address]) Cognitive Factors Limiting Selfcare Function Cognitive Ability Level of Alertness Alert Patient Orientation Name,Age,Birthday,Month,Date, Year,Day of Week,Place, Situation Attention Span Ability Capable of Focused Attention, Capable of Sustained Attention Ability to Follow Commands Able to Follow Multi-Step Commands Memory Description No Deficits Noted Safety Awareness No Deficits Noted Problem Solving Ability No deficits Noted Cognitive Tests SLUMS Pt participated in the SLUMS with a score of 26/30. Pt missed 2 of the 5 delayed recall objects and one of the listening comprehension questions. 27/30 is the range for normal cognition and 21 to 26 for a mild neurocognitive disorder. OT- Vision and Hearing OT- Hearing Assessment OT- Hearing Assessment WFL OT- Vision Assessment Visual Acuity Glasses All The Time Visual Attentiveness WFL Occular Pursuits WFL Visual Convergence WFL M7 OT- IP Mobility and Balance Start: 08/04/20 12:07 Freq: Status: Active Protocol: Document 08/04/20 12:07 CGR (Rec: 08/04/20 12:22 CGR [email or web address]) OT- Bed Mobility Assessment Supine to Sit Supine to Sit Assist Independent Sit to Supine Sit to Supine Assist Independent Scooting Scooting to Edge of Bed Independent OT-Transfer Assessment Sit to and From Stand Sit to and from Stand Independent Transfers Transfer Ability Independent Technique Transfer Destination Bed,Chair,Toilet Transfer Technique Stand Step Pivot Devices Transfer Assistive Devices None OT- Gait Assessment Gait Gait Assistance Required: Independent Assistive Devices Assistive Device None OT- Balance Assessment Sitting Balance and Reactions Static Sitting Balance Ability Normal Dynamic Sitting Balance Ability Normal Standing Balance and Reactions Static Standing Balance Ability Normal Dynamic Standing Balance Ability Normal M8 OT- IP Objective Assessments Start: 08/04/20 12:07 Freq: Status: Active Protocol: Document 08/04/20 12:07 CGR (Rec: 08/04/20 12:22 CGR [email or web address]) OT Gross Range of Motion Upper Extremity Range of Motion Assessment Within Functional Limits OT Strength Upper Extremity Strength Assessment Within Functional Limits Comments Strength Comments 4/5 throughout OT- Coordination Assessment Upper Extremity Finger to Nose Test Within Functional Limits Finger Tapping Test Within Functional Limits OT-Muscle Tone Assessment Muscle Tone WNL Yes OT Sensation Assessment Edema Edema Absent M9 OT- IP Assessment and Plan Start: 08/04/20 12:07 Freq: Status: Active Protocol: Document 08/04/20 12:07 CGR (Rec: 08/04/20 12:22 CGR [email or web address]) OT Summary Assessment and Plan Potential Rehabilitation Potential Excellent Analytic Complexity at Evaluation Low Summary Progress Towards Goals Safe For Discharge Assessment Summary Pt presents as a low complexity evaluation after admit for dysgraphia. Pt states that it effects 1-2 words out of a list if she is writing a grocery list. Pt participated in the SLUMS cog assessment scoring 26/30 putting her into the top of the mild neurocognitive disorder scoring. Pt states that she is at her baseline of IND other than the mild and rare dysgraphia that she has been experiencing. Recommendation at this time is for outpatient ST or OT to address the dysgraphia. Pt states there are no OT or ST services on [facility] and that the symptoms are not bad enough for her to leave the [place] for treatment given her concern for covid. Discussed case with MD YIFAN agreeable to d/c P.T. and S.T. orders as pt is at her baseline. No further inpatient needs. Frequency of Treatment Frequency Of Treatment Discharge Discharge Recommendations OT Discharge Recommendations Home Other Discharge Recommendations outpatient OT or ST for dysgraphia if available to pt. Transportation Needs at Discharge Private Vehicle
--- NOTE | 2020-08-04 10:45 | PC.NURSE ---
Day Shift- Pt A&OX4, able to make needs known using call light. Ambulating in room indep with steady gait and without issue. NIH score is 0. Pt denies any symptoms at this time. States starting approx 2 weeks ago had difficulty writing words down, was able to speak them without issue and spell outloud without issue. But writing words would be written letters mixed up out of order. Pt states this would be intermittently. Pt to MRI at 1025 via wheelchair in no distress. Pt's Renato visiting in room.
--- NOTE | 2020-08-04 11:00 | CM.DANOTE ---
Discharge Planning/Care Management DCP: assessment: case received, EMR reviewed, noted d/c order in place for today by Dr. Brian with no specifics yet in place. Dr. Awad stated she would be in later to see pt after MRI and ECHO results were in and therapy evals were completed. Met now with pt's Rneato who confirmed his had just left for the MRI. Introduced self and role. Pt is an 80 year old female who admitted last night to care of hospitalist team. PCP: Dr. Teague, who directed pt to go to . Payer: Medicare and [employer]. Admission status: in review: per UR RADHIKA Ospina. Renato reports his is very hopeful she will be able to go home later today. They will need this to align with the ferry back to their home on [place]. CERTIFIED APPLIANCE SERVICE TECHNICIAN can provide priority board once the d/c order is finalized. Checked in then with RADHIKA Huston, caring for pt today. She confirms above, says the ECHO will be this afternoon and likely take several hours before the report is available. OT did see pt and cleared her for the home setting. PT and BOTTLE WASHER MACHINE are not now considered to be needed. P: home when stable for same and as per above. Will follow prn. CM Discharge Assessment Start: 08/04/20 10:58 Freq: Status: Active Protocol: Document 08/04/20 10:58 ITV (Rec: 08/04/20 11:00 ITV [id number]) Discharge Planning Assessment Advance Directives? No History Provided By Patient,Medical Record Prior Living Arrangements House Household Members spouse Independent with ADL's Yes Is patient alert and oriented? Yes Discharge Plan Home Review Status In Process
--- NOTE | 2020-08-04 11:18 | SLP.IPNOTE ---
Attempted to see pt in her room. in room waiting. Ot consulted. OT reported that Dr. Brian had canceled ST order. WIll complete the order
--- NOTE | 2020-08-04 12:17 | PT-IP ANOTE ---
Attempted to see pt at 1020am. OT CJ evaluated pt and recommended there's no need for therapy since she is completely at her baseline except difficulty in writing. OT reported Dr. Brian agreed to cancel PT order.
[2020-08-04 12:53] VITALS: BP 138/60; PULSE 67; RESP 16; TEMP 36.7; O2SAT 97
--- NOTE | 2020-08-04 15:01 | P.DS_ITS ---
History of Present Illness History of Present Illness Date Patient Seen: 08/03/20 Chief complaint: thinks she had a small stroke, Sent by Dr. Teague Narrative: Written by Yazmin CASTELLANOS: Elaine Don is a delightful 80 y.o. female from [facility] came in with a 2 week history of being unable to write or type correctly. She states she can verbally spell out words, but when she writes or types out a word it contains the correct letters but are garbled up. 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 She has a history of frequent migraines, denies vision changes, chest pain, shortness of breath, dysurea, diarrhea or constipation. She denies weakness, any sensory deficits, problems swallowing, speaking or ambulation. CT scan of her head today reported Extensive white matter chronic small vessel ischemic changes. Likely old lacunar infarct seen in bilateral occipital lobes and bilateral basal ganglia.Blood pressure is 149/75, heart rate 73, respiratory rate 18, oxygen saturation 95% on room air, she is 58.9 kg with a BMI of 21.6. CBC and chemistries are largely within normal limits, troponin is negative, and COVID-19 is negative. Discharge Providers Provider Date of admission: 08/03/20 21:21 Discharge Date: 08/04/20 Primary care physician: Rizwan Teague MD Consults: 08/03/20 22:48 Consult to Occupational Therapy Evaluate & Treat Comment: Physician Instructions: Evaluate and treat Consult to Physical Therapy Evaluate & Treat Comment: Physician Instructions: Evaluate and Treat Consult to Speech Therapy Evaluate & Treat Comment: Physician Instructions: Evaluate and treat Discharge provider: Chitra Brian DO Summary Hospital Course Discharge Diagnosis: 1. Subacute right-sided CVA with dysgraphia, present on admission. Active. 2. Elevated blood pressure without diagnosis of hypertension, present on admission. Resolved. 3. Hypothyroidism, chronic, present on admission. Stable. Hospital Course: Elaine Don is an 80-year-old female with a past medical history significant for hypothyroidism and migraine headaches from [facility] who presented to the ED with a 2 week history of being unable to write or type correctly with letters jumbled up. 1. Subacute right-sided CVA with dysgraphia, present on admission. Active. -Patient presented with 2 week history of dysgraphia. -NIH score 0. Continued frequentneuro checks. -CT brain without contrast demonstrated no acute intracranial pathology. Extensive white matter chronic small vessel ischemic changes. Likely old lacunar infarct seen in bilateral occipital lobes and bilateral basal ganglia. -MR stroke protocol demonstrated likely small area of subacute infarction involving the right aspect of the anterior corpus callosum. However, differential diagnosis would include a focus of densely cellular neoplasm, given the enhancement and recommended a short-term follow-up brain MRI (without and with contrast) in 4-6 weeks per PCP. Note is made of age-appropriate brain parenchymal volume loss and chronic small vessel schemic changes. Remote lacunar infarcts are seen. No hemodynamically significant stenosis of intracranial or neck arteries seen. -EKG demonstrated sinus rhythm. Continued to monitor closely on telemetry. Patient continued to be in sinus rhythm without significant ectopy. Consider outpatient Holter monitor and will defer to PCP (as patient has potential for atrial fibrillation with severely dilated left atrium). -Risk stratified with hemoglobin A1c normal at 5.4% and fasting lipid panel which demonstrated poor lipid control with total cholesterol 186, triglycerides 148, LDL 113 (goal <70) and HDL 43. -Echocardiogram did not demonstrate obvious embolic source or intraatrial shunt. -COVID-19 negative. -Received aspirin 324 mg in ED. Started and continued stroke prophylaxis with aspirin 81 mg daily and atorvastatin 40 mg daily at bedtime. Discontinued HRT due to risk of VTE. -Ordered physical, occupational and speech therapy evaluation and treatment. Patient recommended to obtain occupational therapy as an outpatient for cognitive treatment which patient declined. 2. Elevated blood pressure without diagnosis of hypertension, present on admission. Resolved. -Initial BP 194/85. Continued to monitor BP which was within normal limits for age with SBP 110's to 140's. -Recommended patient continue to monitor BP at home and PCP's office. 3. Hypothyroidism, chronic, present on admission. Stable. -TSH elevated at 7.02 but free T4 normal at 1.35. -Continued home levothyroxine 50 mcg daily. Exam Vital Signs (past 8 hours): - 08/04/20 07:50 08/04/20 08:09 08/04/20 12:53 Temperature 98.1 F 98.1 F Pulse Rate 74 71 67 Respiratory Rate 18 16 Blood Pressure 147/72 H 147/72 H 138/60 Pulse Oximetry 96 97 Oxygen Delivery Method Room Air Oxygen Flow Rate 0 Narrative Exam Narrative: General: Elderly female lying in bed and in no acute distress, well-developed, well-nourished, appropriately interactive. HEENT: Normocephalic, atraumatic. External ears without defect. Pupils equal, round, and reactive to light. Anicteric sclerae, moist conjunctivae, and no lid lag. Oropharynx free of erythema and cobble stoning with moist mucosa. No facial droop or slurred speech. Neck: Supple with full range of motion. No jugular venous distension. No lymphadenopathy or thyromegaly. Cardiovascular: Regular rate and rhythm without murmurs, rubs, or gallops apprec iated. Pulmonary: Clear to auscultation bilaterally without crackles, wheezes, or rhonchi. Normal respiratory effort with no use of accessory muscles. Abdomen: Soft, bowel sounds present, nontender, nondistended. No hepatosplenomegaly or masses appreciated. Extremities: No clubbing, cyanosis, or edema. Skin: Normal temperature, turgor, and texture; no rash, ulcers, or subcutaneous nodules appreciated. Neurological: Cranial nerves grossly intact. Normal muscle strength, tone, and bulk. Reflexes, coordination, and sensory function within normal limits. No facial droop. No slurred speech. Questionable expressive aphasia with subtle word finding difficulties. Cerebellar function intact with [id number] and [id number]. Psychiatric: Normal mood and affect. Alert and oriented to person, place, and time. Objective Labs Result Diagrams: 08/04/20 06:00 08/04/20 06:00 Labs: Laboratory Results - last 24 hr 08/03/20 08/03/20 08/03/20 19:35 19:35 19:35 WBC 6.7 RBC 4.60 Hgb 13.2 Hct 39.6 MCV 86.3 MCH 28.6 MCHC 33.2 RDW 13.3 Plt Count 237 Neut % (Auto) 62.1 Lymph % (Auto) 24.6 L [place] % (Auto) 10.4 Eos % (Auto) 1.4 L Baso % (Auto) 1.5 Neut # (Auto) 4100 Lymph # (Auto) 1600 [place] # (Auto) 700 Eos # (Auto) 100 Baso # (Auto) 100 PT 11.0 INR 1.0 APTT 31 Sodium 140 Potassium 4.1 Chloride 105 Carbon Dioxide 29 BUN 15 Creatinine 0.92 Estimated GFR 58.6 L BUN/Creatinine Ratio 16.3 Glucose 102 Hemoglobin A1c Calcium 9.5 Magnesium Total Bilirubin 0.5 AST 26 ALT 17 Alkaline Phosphatase 109 Total Creatine Kinase 95 CK-MB (CK-2) TNP CK-MB (CK-2) Rel Index TNP Troponin I < 0.012 Total Protein 7.6 Albumin 4.2 Globulin 3.4 Albumin/Globulin Ratio 1.2 Triglycerides Cholesterol LDL Cholesterol, Calc HDL Cholesterol TSH Free T4 U Opiates 300ng/mL cut Ur Oxycodone Screen Urine Methadone Screen Ur Barbiturates Screen U Tricyclic Antidepress Ur Phencyclidine Scrn Ur Amphetamines Screen U Methamphetamines Scrn Ur MDMA Scrn (Ecstasy) U Benzodiazepines Scrn Urine Cocaine Screen U Marijuana (THC) Screen COVID-19 PCR 08/03/20 08/04/20 08/04/20 19:35 02:10 06:00 WBC 7.5 RBC 4.51 Hgb 12.8 Hct 38.8 MCV 86.1 MCH 28.3 MCHC 32.9 RDW 13.3 Plt Count 221 Neut % (Auto) 60.5 Lymph % (Auto) 27.7 [place] % (Auto) 9.4 Eos % (Auto) 1.1 L Baso % (Auto) 1.3 Neut # (Auto) 4500 Lymph # (Auto) 2100 [place] # (Auto) 700 Eos # (Auto) 100 Baso # (Auto) 100 PT INR APTT Sodium Potassium Chloride Carbon Dioxide BUN Creatinine Estimated GFR BUN/Creatinine Ratio Glucose Hemoglobin A1c Calcium Magnesium Total Bilirubin AST ALT Alkaline Phosphatase Total Creatine Kinase CK-MB (CK-2) CK-MB (CK-2) Rel Index Troponin I Total Protein Albumin Globulin Albumin/Globulin Ratio Triglycerides Cholesterol LDL Cholesterol, Calc HDL Cholesterol TSH Free T4 U Opiates 300ng/mL cut Negative Ur Oxycodone Screen Negative Urine Methadone Screen Negative Ur Barbiturates Screen Negative U Tricyclic Antidepress Negative Ur Phencyclidine Scrn Negative Ur Amphetamines Screen Negative U Methamphetamines Scrn Negative Ur MDMA Scrn (Ecstasy) Negative U Benzodiazepines Scrn Negative Urine Cocaine Screen Negative U Marijuana (THC) Screen Negative COVID-19 PCR Negative 08/04/20 08/04/20 08/04/20 06:00 06:00 06:00 WBC RBC Hgb Hct MCV MCH MCHC RDW Plt Count Neut % (Auto) Lymph % (Auto) [place] % (Auto) Eos % (Auto) Baso % (Auto) Neut # (Auto) Lymph # (Auto) [place] # (Auto) Eos # (Auto) Baso # (Auto) PT INR APTT Sodium 138 Potassium 4.3 Chloride 107 Carbon Dioxide 29 BUN 15 Creatinine 0.94 Estimated GFR 57.2 L BUN/Creatinine Ratio 16.0 Glucose 93 Hemoglobin A1c 5.4 Calcium 9.4 Magnesium 2.2 Total Bilirubin AST ALT Alkaline Phosphatase Total Creatine Kinase CK-MB (CK-2) CK-MB (CK-2) Rel Index Troponin I Total Protein Albumin Globulin Albumin/Globulin Ratio Triglycerides 148 Cholesterol 186 LDL Cholesterol, Calc 113 H HDL Cholesterol 43 TSH 7.02 H Free T4 U Opiates 300ng/mL cut Ur Oxycodone Screen Urine Methadone Screen Ur Barbiturates Screen U Tricyclic Antidepress Ur Phencyclidine Scrn Ur Amphetamines Screen U Methamphetamines Scrn Ur MDMA Scrn (Ecstasy) U Benzodiazepines Scrn Urine Cocaine Screen U Marijuana (THC) Screen COVID-19 PCR 08/04/20 06:00 WBC RBC Hgb Hct MCV MCH MCHC RDW Plt Count Neut % (Auto) Lymph % (Auto) [place] % (Auto) Eos % (Auto) Baso % (Auto) Neut # (Auto) Lymph # (Auto) [place] # (Auto) Eos # (Auto) Baso # (Auto) PT INR APTT Sodium Potassium Chloride Carbon Dioxide BUN Creatinine Estimated GFR BUN/Creatinine Ratio Glucose Hemoglobin A1c Calcium Magnesium Total Bilirubin AST ALT Alkaline Phosphatase Total Creatine Kinase CK-MB (CK-2) CK-MB (CK-2) Rel Index Troponin I Total Protein Albumin Globulin Albumin/Globulin Ratio Triglycerides Cholesterol LDL Cholesterol, Calc HDL Cholesterol TSH Free T4 1.35 U Opiates 300ng/mL cut Ur Oxycodone Screen Urine Methadone Screen Ur Barbiturates Screen U Tricyclic Antidepress Ur Phencyclidine Scrn Ur Amphetamines Screen U Methamphetamines Scrn Ur MDMA Scrn (Ecstasy) U Benzodiazepines Scrn Urine Cocaine Screen U Marijuana (THC) Screen COVID-19 PCR Discharge Plan Discharge Plan Patient Disposition: Home Discharge comment: You are being discharged home. You had a small stroke on the right side of your brain. You have been started on aspirin 81 mg daily and atorvastatin 40 mg daily at bedtime to help prevent future stroke. Please continue monitoring your blood pressure at home and keep a log to take to your PCP appointments. Occupational therapy recommends outpatient therapy for writing if possible. Please follow-up with your primary care physician, Dr. Teague, regarding your hospitalization. Discharge orders & Medications Prescriptions: New atorvastatin [Lipitor] 20 mg Tablet 40 mg PO BEDTIME Qty: 30 RF: 0 aspirin 81 mg Tablet,Delayed Release (Dr/Ec) 81 mg PO DAILY Qty: 30 RF: 0 Continued Propranolol HCl 20 mg PO BID Qty: 0 RF: 0 levothyroxine 50 mcg Tablet 50 mcg PO DAILY RF: 0 latanoprost 0.005 % Drops 1 drp OPHTHALMIC (EYE) BEDTIME RF: 0 Rhopressa 0.02 % Drops 1 drp OPHTHALMIC (EYE) BEDTIME RF: 0 Discontinued estradiol 0.5 MG tablet 0.5 mg PO QDAY Qty: 0 RF: 0 Follow up/Referrals: Rizwan Teague MD [Primary Care Provider] - 3-5 Days Diet/Activity/Treatments Diet: Low-fat, Low-sodium and Low-cholesterol Activity: Activity as tolerated Visit Report/Discharge Packet Instructions: The Mediterranean Diet and Good Health, DI for Stroke-Ischemic, How to Prevent Falls, Atorvastatin, Aspirin, How to Monitor Your Blood Pressure at Home, Mediterranean Diet May Reduce the Risk of Stroke in People with High Risk o Visit Report Forms: Patient Portal/API, Stroke Signs & Symptoms Discharge Data Primary Care Provider: Rizwan Teague Attending Provider: Yazmin Flannery Admit Date/Time: 08/03/20 21:21 Discharges patient from system. Discharge Date/Time: 08/04/20 16:10 Quality VTE Deep Vein Thrombosis/Pulmonary Embolism Present on Admission: No
[2020-08-04] MEDS: INFLUENZA HD VACCINE 0.7 ML SYRINGE IM (16:08)
== END 2020-08-04 16:10 | disposition home or self-care (01) ==
LOC: ED 21:21 → AC 21:22
PROVIDERS: Internal Medicine; Admitting Provider Nurse Practitioner Family; Emergency Provider Emergency Medicine; PCP Family Medicine; Referring Provider Emergency Medicine; Visit Provider Nurse Practitioner Family
DX: R29.818 Other symptoms and signs involving the nervous system (principal); I10 Essential (primary) hypertension; H40.9 Unspecified glaucoma; Z11.59 Encounter for screening for other viral diseases; Z23 Encounter for immunization
CPT/HCPCS: 36415; 70450; 70548; 70553; 71045; 80048; 80053; 80061; 80305; 82550; 83036; 83735; 84439; 84443; 84484; 85025; 85610; 85730; 87635; 90471; 90662; 93306; 96372; 97165; 97535; 99284; G0378; J1650

== ENCOUNTER → 2020-10-18 11:59 | Outpatient (CLI) | payer MEDICARE, SELFPAY ==
[2020-08-03 22:13] VITALS: BMI 21.6
--- NOTE | 2020-10-18 | DI.MRI.S_ITS ---
PROCEDURE: MR STROKE Pre- and post-contrast brain MRI, non-contrast brain MR angiogram, pre- and postcontrast neck MR angiogram INDICATIONS: Migraine, unspecified, not intractable TECHNIQUE: Brain: Noncontrast axial T1 spin echo, axial T2 fast spin echo, sagittal and axial FLAIR, coronal T2 fast spin echo, axial gradient echo, axial diffusion and ADC through the brain. After the administration of contrast, axial 3D VIBE of the cranial vasculature and brain. Brain MRA: Non-contrast 3-D time of flight MR angiogram, with multiple ktagxwx-bzhnpqhmb-emvyvecfao (MIP) reformats performed. Neck MRA: Axial and sagittal TruFISP through the neck. Coronal dynamic MR angiogram during administration of contrast in the arterial and venous phases, with 3-dimenstional yglabjo-khgxeqkfb-ymopszzmrj (MIP) reformats constructed from subtraction images. COMPARISON: [facility], MR, MR STROKE, 08/04/2020, 10:39. FINDINGS: Image quality: Excellent. BRAIN: CSF spaces: Ventricles are normal in size and shape. Basal cisterns are patent. No extra-axial fluid collections. Brain: No acute intracranial bleeds or mass effects. No change in scattered small low gradient echo signal intensity foci within the bilateral parietal, left occipital, and bilateral temporal lobes. There is moderate diffuse cerebral volume loss. There is a mild degree of patchy high FLAIR signal within the periventricular and subcortical white matter. Delaney-white matter interface is normal. Diffusion weighted images show no acute ischemic insults. Brainstem appears normal. Normal intravascular flow voids are present. No abnormal intracranial enhancement. Previously seen enhancing focus within the right corpus callosum body is resolved, and there is a small chronic 7 mm diameter infarct remaining its stead. Small chronic bilateral basal ganglia infarcts are present, as before. Skull and face: Calvarial marrow signal is normal. Orbits appear normal. Sinuses: Sinuses and mastoids are clear. BRAIN MR ANGIOGRAM: Anterior circulation: Intracranial internal carotid arteries are normal in size and enhancement. The flow within the paired anterior cerebral arteries is normal and symmetric. The flow within the middle cerebral arteries is normal and symmetric. The anterior communicating artery is seen. No stenoses, occlusions, or aneurysms. Posterior circulation: The visualized portions of the vertebral arteries demonstrate normal caliber, and join to form a normal appearing basilar artery. The flow within the posterior cerebral arteries is normal and symmetric. No stenoses, occlusions, or aneurysms. NECK MR ANGIOGRAM: Carotids: Great vessels demonstrate a conventional anatomy as they arise from the aortic arch. The origins of the common carotid arteries appear patent. The calibers and courses of both common carotid arteries are normal. The bifurcation regions appear normal bilaterally. The internal carotid arteries demonstrate normal course and caliber. Posterior circulation: The origins of the vertebral arteries appear patent. More superior portions of both vertebral arteries demonstrate normal course and caliber, and join to form a normal appearing basilar artery. Miscellaneous: Subclavian arteries appear patent. Pre-contrast images through the neck show no soft tissue abnormalities. IMPRESSION: BRAIN MRI: 1. Volume loss and small vessel ischemic disease. 2. Previously seen enhancing subacute infarct within the right colo sella body now demonstrates a chronic appearance, with resolution of previously seen enhancement. 3. Findings consistent with amyloid angiopathy sequelae. BRAIN MR ANGIOGRAM: 1. Negative cerebral MR angiography. NECK MR ANGIOGRAM: 1. No internal carotid artery stenosis bilaterally. 2. Patent bilateral vertebral arteries. Dictated by: Nancy Queen M.D. on 10/18/2020 at 14:14 Approved by: Nancy uQeen M.D. on 10/18/2020 at 14:19
--- NOTE | 2020-10-18 | DI.MG.S_ITS ---
BILATERAL DIGITAL SCREENING MAMMOGRAM 3D/2D WITH CAD: 10/18/2020 CLINICAL: Routine screening. Comparison is made to exams dated: 10/01/2018 mammogram, 12/18/2016 mammogram, and 08/30/2015 mammogram - [facility]. The tissue of both breasts is extremely dense, which lowers the sensitivity of mammography. Current study was also evaluated with a Computer Aided Detection (CAD) system. There is a new oval equal density mass with an obscured and circumscribed margin in the left breast at 5 o'clock posterior depth. There also is an oval equal density mass with an obscured and circumscribed margin in the left breast at 1 o'clock middle depth. No other significant masses, calcifications, or other findings are seen in either breast. IMPRESSION: INCOMPLETE: NEEDS ADDITIONAL IMAGING EVALUATION The new oval equal density mass in the left breast at 5 o'clock posterior depth is indeterminate. Mediolateral and spot compression views as well as additional views with possible ultrasound are recommended. The oval equal density mass in the left breast at 1 o'clock middle depth is indeterminate. Mediolateral and spot compression views as well as additional views with possible ultrasound are recommended. This exam was interpreted at Station ID: [id number]. NOTE: For mammograms, a report in lay terms will be sent to the patient. Approximately 15% of breast malignancies will not be visualized mammographically. In the management of a palpable breast mass, a negative mammogram must not discourage biopsy of a clinically suspicious lesion. Electronically Signed By: Bhavesh vuong/zoey:10/18/2020 13:58:45 letter sent: Additional Imaging Needed ACR BI-RADS Category 0: Incomplete [id number]
== END ==
PROVIDERS: PCP Family Medicine; Referring Provider Family Medicine; Visit Provider Family Medicine
DX: Z12.31 Encounter for screening mammogram for malignant neoplasm of breast (principal); G43.909 Migraine, unspecified, not intractable, without status migrainosus; R68.89 Other general symptoms and signs
CPT/HCPCS: 70548; 70553; 77063; 77067

== ENCOUNTER → 2020-11-20 12:14 | Outpatient (CLI) | payer MEDICARE, SELFPAY ==
[2020-08-03 22:13] VITALS: BMI 21.6
--- NOTE | 2020-11-20 | DI.MG.S_ITS ---
UNILATERAL LEFT DIGITAL DIAGNOSTIC MAMMOGRAM 3D/2D WITH ADDITIONAL VIEWS: 11/20/2020 CLINICAL: Additional evaluation requested from prior study. Comparison is made to exams dated: 10/18/2020 mammogram, 10/01/2018 mammogram, and 12/18/2016 mammogram - [facility]. The tissue of left breast is extremely dense, which lowers the sensitivity of mammography. Redemonstration of previously described oval equal density mass with an obscured and circumscribed margin in the left breast at 5 o'clock posterior depth. This is seen in additional views. This is less prominent and decreased in size. There also is a possible oval equal density mass with an obscured and circumscribed margin in the left breast at 1 o'clock middle depth. This appears much less prominent and decreased in size. No other significant masses or calcifications are seen in the breast. IMPRESSION: INCOMPLETE: NEEDS ADDITIONAL IMAGING EVALUATION The oval equal density mass in the left breast at 5 o'clock posterior depth is indeterminate. The possible oval equal density mass in the left breast at 1 o'clock middle depth is indeterminate. An ultrasound is recommended for further evaluation and is scheduled to follow this examination; however, the patient could not wait for her scheduled appointment time and is rescheduled to return for left breast ultrasound on Nov at 12:30 hours. This exam was interpreted at Station ID: [id number]. NOTE: For mammograms, a report in lay terms will be sent to the patient. Approximately 15% of breast malignancies will not be visualized mammographically. In the management of a palpable breast mass, a negative mammogram must not discourage biopsy of a clinically suspicious lesion. Electronically Signed By: Levi Scott M.D. aty/:11/20/2020 14:08:33 ACR BI-RADS Category 0: Incomplete [id number]
== END ==
PROVIDERS: PCP Family Medicine; Referring Provider Family Medicine; Visit Provider Family Medicine
DX: R92.8 Other abnormal and inconclusive findings on diagnostic imaging of breast (principal); N63.23 Unspecified lump in the left breast, lower outer quadrant
CPT/HCPCS: 77065; G0279

== ENCOUNTER → 2020-11-24 10:26 | Outpatient (CLI) | payer MEDICARE, SELFPAY ==
[2020-08-03 22:13] VITALS: BMI 21.6
--- NOTE | 2020-11-24 | DI.US.S_ITS ---
LIMITED ULTRASOUND OF LEFT BREAST: 11/24/2020 CLINICAL: Patient returns today to evaluate focal asymmetries in the left breast. Comparison is made to exams dated: 11/20/2020 mammogram, 10/18/2020 mammogram, and 10/01/2018 mammogram - [facility]. Color flow and real-time ultrasound of the left breast 1 o'clock and 5 o'clock regions were performed on the areas of interest. There is a benign 1.3 cm x 0.9 cm x 1.1 cm oval cyst in the left breast at 1 o'clock posterior depth. This oval cyst is anechoic with a well-defined boundary and posterior acoustic enhancement. This correlates with mammography findings. Color flow imaging demonstrates that there is no vascularity present. There also is a benign 0.9 cm x 0.8 cm x 0.8 cm oval cyst in the left breast at 5 o'clock middle depth. This oval cyst is anechoic with a well-defined boundary and posterior acoustic enhancement. This correlates with mammography findings. Color flow imaging demonstrates that there is no vascularity present. IMPRESSION: BENIGN There is no sonographic evidence of malignancy. The 1.3 cm x 0.9 cm x 1.1 cm oval cyst in the left breast at 1 o'clock posterior depth is consistent with a simple cyst and is benign. The 0.9 cm x 0.8 cm x 0.8 cm oval cyst in the left breast at 5 o'clock middle depth is consistent with a simple cyst and is benign. A 1 year screening mammogram is recommended. This exam was interpreted at Station ID: [id number]. Electronically Signed By: Bhavesh vuong/zoey:11/24/2020 13:32:09 letter sent: Normal Exam Ultrasound BI-RADS: 2 Benign
== END ==
PROVIDERS: PCP Family Medicine; Referring Provider Family Medicine; Visit Provider Family Medicine
DX: R92.8 Other abnormal and inconclusive findings on diagnostic imaging of breast (principal); N60.02 Solitary cyst of left breast
CPT/HCPCS: 76642

== ENCOUNTER → 2021-04-17 15:31 | Outpatient (CLI) | payer MEDICARE, SELFPAY ==
[2020-08-03 22:13] VITALS: BMI 21.6
== END ==
PROVIDERS: Visit Provider Physician Assistant
DX: R82.90 Unspecified abnormal findings in urine (principal)
CPT/HCPCS: 87077; 87086; 87186

== ENCOUNTER → 2021-04-30 09:59 | Outpatient (CLI) | payer MEDICARE, SELFPAY ==
[2020-08-03 22:13] VITALS: BMI 21.6
[2021-04-30 20:44] LABS: Add Manual Diff / Slide Review NO; Basophils Absolute Auto 100 /uL (0-100); Eosinophils Absolute Auto 100 /uL (0-450); Eosinophils Percent Auto 1.2 % (2-4); Hematocrit 36.1 % (36-46); Hemoglobin 12.3 g/dL (12.0-16.0); Lymphocytes Absolute Auto 1300 /uL (1100-4500); Mean Corpuscular Hemoglobin 29.2 PG (26-34); Mean Corpuscular Volume 86.1 fL (80-100); Monocytes Absolute Auto 500 /uL (0-900); Monocytes Percent Auto 7.6 % (3-14); Neutrophils Absolute Auto 5100 /uL (1500-7000); Neutrophils Percent Auto 72.2 % (50-75); Platelet Count 227 X10^3/uL (150-400); Red Blood Cell Count 4.19 X10^6/uL (4.0-5.2); Red Cell Distribution Width 13.2 % (11.6-14.8)
[2021-04-30 20:58] LABS: Alanine Aminotransferase 18 IU/L (<35); Albumin 3.8 g/dL (3.5-5.0); Albumin Globulin Ratio 1.4 (1.0-2.8); Alkaline Phosphatase 106 U/L (38-126); Aspartate Aminotransferase 30 IU/L (14-36); BUN Creatinine Ratio 24.4 (6-22); Bilirubin Total 0.7 mg/dL (0.2-1.3); Blood Urea Nitrogen 22 mg/dL (7-17); Calcium 9.7 mg/dL (8.4-10.2); Carbon Dioxide 24 mmol/L (22-32); Chloride 108 mmol/L (98-107); Cholesterol 128 mg/dL (140-199); Estimated Glomerular Filt Rate 59.9 mL/min (>60); Globulin 2.8 g/dL (1.7-4.1); Glucose 100 mg/dL (80-110); HDL Cholesterol 45 mg/dL (40-60); HEMOLYSIS < 15 (0-50); LDL Cholesterol Calculated 63 mg/dL (<100); Potassium 4.5 mmol/L (3.4-5.1); Sodium 138 mmol/L (137-145); Total Protein 6.6 g/dL (6.3-8.2); Triglycerides 101 mg/dL (35-150)
[2021-04-30 21:25] LABS: Thyroid Stimulating Hormone 3.07 uIU/mL (0.47-4.68)
== END ==
PROVIDERS: PCP Physician Assistant Medical; Referring Provider Physician Assistant; Visit Provider Physician Assistant
DX: E03.9 Hypothyroidism, unspecified (principal); G45.9 Transient cerebral ischemic attack, unspecified; E78.5 Hyperlipidemia, unspecified; I10 Essential (primary) hypertension; K58.9 Irritable bowel syndrome, unspecified; K59.00 Constipation, unspecified
CPT/HCPCS: 80053; 80061; 84443; 85025